=== PATIENT | male | born 1960 | race Two or more races ===

== ENCOUNTER 2025-07-17 17:26 | Emergency (ER) | payer MEDICARE, OTHER ==
[~2025-07-17] VITALS: Ht 175.3 cm; Wt 84.8 kg
--- NOTE | 2025-07-17 18:53 | DVH ---
EXAM: CT CT AB PEL WO CON-NO ORAL OR IV HISTORY: back pain flank pain COMPARISON STUDY: None TECHNIQUE: Multidetector CT of the abdomen and pelvis was performed from lung bases to pubic symphysis. Imaging was performed without IV contrast. Axial, coronal, and sagittal multiplanar reformats were obtained from the axial data set by the technologist. RADIATION DOSE: CTDI vol 14.1 mGy. DLP 787.6 mGy.cm FINDINGS: Limited evaluation of the solid organs in the absence of IV contrast. Lungs: Basilar atelectasis/scarring. Liver: Diffuse hypoattenuation of the liver suggestive of hepatic steatosis. Spleen: Unremarkable. Pancreas: Unremarkable. Gallbladder: Unremarkable. Adrenals: Unremarkable Kidneys: Nonobstructing 3 mm left renal calculus. No hydronephrosis. Pelvic Viscera: Mild prostatomegaly. Vasculature: Atherosclerotic aortoiliac calcification. Retroperitoneum: Unremarkable. Bowel: No bowel obstruction. The appendix is normal. Musculoskeletal: Broad-based disc protrusion at L4-5, suboptimally assessed. Soft tissues: Unremarkable IMPRESSION: 1. No acute abdominopelvic abnormality. 2. Incidental findings as detailed.
[2025-07-17 19:37] LABS: Hematocrit 45.5 % (41.0-53.0); Hemoglobin 15.5 g/dL (13.5-17.5); Mean Corpuscular Hemoglobin 31.5 pg (28.0-32.0); Mean Corpuscular Volume 92.4 fL (80.0-100.0); Nucleated Red Blood Cells % 0.0 %
[2025-07-17 19:49] LABS: Alanine Aminotransferase 25 U/L (7-40); Alkaline Phosphatase 78 U/L (46-116); Anion Gap 11 (5-15); BUN/Creatinine Ratio 16.7 (10.0-20.0); Blood Urea Nitrogen 15 mg/dL (9-23); Calcium 9.0 mg/dL (8.7-10.4); Carbon Dioxide 23 mmol/L (20-31); Chloride 104 mmol/L (98-107); Potassium 3.7 mmol/L (3.5-5.1); Sodium 138 mmol/L (136-145); Total Protein 7.4 g/dL (5.7-8.2)
[2025-07-17 19:50] LABS: Albumin 4.3 g/dL (3.2-4.8); Creatine Kinase IFCC 69 U/L (46-171)
[2025-07-17 19:52] LABS: Bilirubin, Total 0.2 mg/dL (0.2-1.0); Glucose 126 mg/dL (74-106)
--- NOTE | 2025-07-17 20:22 | ED.PDOC ---
Back pain HPI HPI Comments HPI: 65 year old male presents to the ED with a chief complaint of RT lumbosacral pain onset 1 week. Patient has been experiencing RT lumbosacral pain for the past week, stats he fell about 1 month ago. Pain worsens with standing or exertion. Denies numbness/tingling, fever, chills, nausea, vomiting, swelling, erythema, dizziness, dysuria, hematuria. No other symptoms or modifying factors present at this time. Initial Vitals BP: 146/105 HR: 88 RR: 18 O2 Sat: 96% Temp: 97.8 F Past Medical history: Denies Past Surgical history: eye surgery Medications: Denies Social History: Denies smoking, ETOH, and drug use. Allergies: NKDA WAGNER: Right lumbosacral focal pain. No flank pain, no CVA, worse with movement. Normal exam HPI: Poor Historian. REVIEW OF SYSTEMS: CONSTITUTIONAL: Denies acute: fever, diaphoresis, chills, generalized weakness. HEAD: Denies acute: headache, photophobia Eyes: Denies acute: Double vision, vision loss, eye pain, eye discharge. EARS: Denies acute: tinnitus, hearing loss, ear discharge, ear pain, THROAT: Denies acute: sore throat, swelling, difficulty swallowing , pain with swallowing, change in voice. NECK: Denies acute: neck pain, neck swelling, stiff neck. HEART: Denies acute : chest pain, palpitations, LUNGS: Denies acute: SOB, wheezing, cough, hemoptysis ABDOMEN: Denies acute: abdominal pain, Nausea, Vomiting, diarrhea, melena , hematemesis, hematochezia SKIN: Denies acute: rash, redness, lesions, itchiness. EXTREMITIES: Denies acute: calf pain, numbness, tingling, weakness, denies pain in extremity. Denies acute: Neuro: Denies acute: focal neurological deficit, motor or sensory focal neurological deficit, tremors, seizure like activity, confusion, dizziness, change in mental status, loss of bowel or bladder function, cauda equina like symptoms. : Denies acute: dysuria, hematuria, flank pain, increase in urinary frequency. PSYCH: Denies acute: hallucination, suicidal ideation, homicidal ideation. PHYSICAL EXAM: General: ----no----acute distress, awake and alert. Head: normocephalic, atraumatic. No raccoon's eyes, no dailey sign. Neck: supple, trachea is midline, no swelling. Throat: Normal phonation. Eyes:, no erythema, no purulent discharge, no proptosis, no icterus. Heart: regular rate, regular rhythm, no significant murmur appreciated. Lungs: no apparent respiratory distress, Able to speak in full sentences. No wheezing, no rhonchi, no crackles. No stridors Clear to auscultation bilaterally. Abdomen: non tender to palpation, non distended, soft, no guarding, no rebound, + bowel sounds. Neuro: Awake, Alert, oriented to name, self, situation, follows commands GCS=15. Speech is normal. Skin: no petechia, no purpura, no cyanosis, non-pale, not jaundice. Lower extremities: --no - Pitting edema no deformity, no focal swelling, no calf TTP. Makes eye contact. moves all four extremities. Face: no apparent facial droop. No CVA tenderness to percussion bilaterally. Ambulating in the ED independently. Evaluation of the area of complaint: Right posterior lumbosacral area focal tenderness to palpation. No erythema no swelling no deformity. ED COURSE: DISCLAIMER: This medical document was created using an electronic medical record system with voice recognition software and computerized dictation system. Although this document has been carefully reviewed, there might still be some phonetic and typographical errors. Occasional wrong-word or "sound-alike" substitutions may have occurred due to the inherent limitations of voice recognition software. These areas are purely typographical due to imperfections of the software programs and do not reflect any compromise in the patient's medical care. Please read the chart carefully and recognize, using context, where these substitutions have occurred. Chief Complaint: Flank Pain Time Seen by MD: 20:05 Reviewed Notes: Medications, Allergies Allergies: Coded Allergies: NO KNOWN ALLERGIES (Unverified , 07/17/25) Information Source: Patient, Spouse Mode of Arrival: Ambulatory Timing: Weeks Duration: Since onset Prehospital treatment: None Past Medical History PAST MEDICAL HISTORY: Denies Surgical History: Denies all surgeries Family History Family History: Reviewed,noncontributory to illness, No family hx of Cancer, No family hx of DM, No family hx of Heart emilie, No family hx of HTN, No family hx ofKidney emilie, No family hx of Liver emilie, No family hx of Lung emilie, No family hx of Stroke Social History Smoker: Non-Smoker Alcohol: Denies ETOH Use Drugs: Denies Drug Use Lives In: Home Was a procedure done? Was a procedure done?: No X-Ray, Labs, Meds, VS Vital Signs Date Time Temp Pulse Resp B/P (MAP) Pulse Ox O2 Delivery O2 Flow Rate FiO2 07/17/25 19:58 97.9 81 18 167/100 (122) 96 97.9 07/17/25 17:32 97.8 88 18 146/105 96 97.8 Lab Test 07/17/25 20:04 07/17/25 19:15 07/17/25 19:06 Range/Units Troponin I High Sensitivity 3 L 3 L </=54 ng/L Urine Color Yellow Yellow Urine Clarity Clear Clear Urine pH 6.0 5.0-9.0 Urine Specific [place] 1.023 1.001-1.035 Urine Protein Negative Negative Urine Ketones Negative Negative Urine Blood Negative Negative /uL Urine Nitrite Negative Negative Urine Bilirubin Negative Negative Urine Urobilinogen Normal Negative mg/dL Urine Leukocyte Esterase Negative Negative /uL Urine RBC 1 0 - 3 /hpf Urine Microscopic WBC < 1 0-3 /HPF Urine Squamous Epithelial Cells None seen <5 /hpf Urine Bacteria None seen None Seen /hpf Urine Glucose Normal Normal mg/dL White Blood Count 7.7 4.4-10.8 10^3/uL Red Blood Count 4.92 4.5-5.90 10^6/uL Hemoglobin 15.5 13.5-17.5 g/dL Hematocrit 45.5 41.0-53.0 % Mean Corpuscular Volume 92.4 80.0-100.0 fL Mean Corpuscular Hemoglobin 31.5 28.0-32.0 pg Mean Corpuscular Hemoglobin Concent 34.1 32.0-36.0 g/dL Red Cell Distribution Width 12.9 11.8-14.3 % Platelet Count 234 140-450 10^3/uL Mean Platelet Volume 9.0 6.9-10.8 fL Neutrophils (%) (Auto) 49.2 37.0-80.0 % Lymphocytes (%) (Auto) 37.5 10.0-50.0 % Monocytes (%) (Auto) 9.5 0.0-12.0 % Eosinophils (%) (Auto) 2.8 0.0-7.0 % Basophils (%) (Auto) 1.0 0.0-2.0 % Neutrophils # (Auto) 3.8 1.6-8.6 10 ^3/uL Lymphocytes # (Auto) 2.9 0.4-5.4 10 ^3/uL Monocytes # (Auto) 0.7 0-1.3 10 ^3/uL Eosinophils # (Auto) 0.2 0-0.8 10 ^3/uL Basophils # (Auto) 0.1 0-0.2 10 ^3/uL Nucleated Red Blood Cells 0.0 % Sodium Level 138 136-145 mmol/L Potassium Level 3.7 3.5-5.1 mmol/L Chloride Level 104 98-107 mmol/L Carbon Dioxide Level 23 20-31 mmol/L Anion Gap 11 5-15 Blood Urea Nitrogen 15 9-23 mg/dL Creatinine 0.90 0.700-1.30 mg/dL Glomerular Filtration Rate Calc 94 >90 mL/min BUN/Creatinine Ratio 16.7 10.0-20.0 Serum Glucose 126 H 74-106 mg/dL Lactic Acid Level 1.8 0.4-2.0 mmol/L Calcium Level 9.0 8.7-10.4 mg/dL Total Bilirubin 0.2 0.2-1.0 mg/dL Aspartate Amino Transferase (AST) 22 13-40 U/L Alanine Aminotransferase (ALT) 25 7-40 U/L Alkaline Phosphatase 78 46-116 U/L Creatine Kinase 69 46-171 U/L Total Protein 7.4 5.7-8.2 g/dL Albumin 4.3 3.2-4.8 g/dL [address] [address] Ph: [phone] DIAGNOSTIC IMAGING Diagnostic Imaging Report : [id number] Signed PATIENT: FLORES WAGNER ACCT: [id number] UNIT: [id number] : 1960 LOC: ER ROOM / BED: / AGE / SEX: 65 / M ADM STATUS: REG ER SERVICE [id number] ORDERING PHYSICIAN: IDALIA VINCENT DO PROCEDURE(s): ABPL - CT AB PEL WO CON-NO ORAL OR IV REASON: back pain flank pain ORDER NUMBER(s): [id number], ACCESSION NUMBER(s): [id number] EXAM: CT CT AB PEL WO CON-NO ORAL OR IV HISTORY: back pain flank pain COMPARISON STUDY: None TECHNIQUE: Multidetector CT of the abdomen and pelvis was performed from lung bases to pubic symphysis. Imaging was performed without IV contrast. Axial, coronal, and sagittal multiplanar reformats were obtained from the axial data set by the technologist. RADIATION DOSE: CTDI vol 14.1 mGy. DLP 787.6 mGy.cm FINDINGS: Limited evaluation of the solid organs in the absence of IV contrast. Lungs: Basilar atelectasis/scarring. Liver: Diffuse hypoattenuation of the liver suggestive of hepatic steatosis. Spleen: Unremarkable. Pancreas: Unremarkable. Gallbladder: Unremarkable. Adrenals: Unremarkable Kidneys: Nonobstructing 3 mm left renal calculus. No hydronephrosis. Pelvic Viscera: Mild prostatomegaly. Vasculature: Atherosclerotic aortoiliac calcification. Retroperitoneum: Unremarkable. Bowel: No bowel obstruction. The appendix is normal. Musculoskeletal: Broad-based disc protrusion at L4-5, suboptimally assessed. Soft tissues: Unremarkable IMPRESSION: 1. No acute abdominopelvic abnormality. 2. Incidental findings as detailed. ATED BY: SAMIRA DEJESUS MD DICTATED DATE/TIME: 07/17/251849 SIGNED BY: SAMIRA DEJESUS MD SIGNED DATE/TIME: 07/17/251849 CC: Time of 1ST Reevaluation: 20:35 Reevaluation 1ST: Unchanged Patient Education/Counseling: Diagnosis, Treatment Family Education/Counseling: No Family Present Departure 1 Departure Time of Disposition: 21:45 Impression: Primary Impression: Back pain, lumbosacral Disposition: 01 HOME / SELF CARE / HOMELESS Condition: Stable Additional Instructions: Additional instructions: Please read all instructions provided in this packet carefully. You MUST follow-up with your primary care/family doctor in 1 to 2 days. If you are unable to see your primary care/family doctor, please return to our emergency room for re-assessment and re-evaluation in 1 to 2 days. Return to the emergency room here in our facility or to the nearest ER [facility] if your symptoms change or worsen. CONSULTATIONS: you MUST Follow-up for consultation as soon as possible with: --orthopedic doctor in 1-2 days. Please call for appointment. You MUST call the consultants office yourself to make an appointment. You may need to arrange that through your insurance and/or your primary/family doctor. If you are unable to see the makeup sales consultant in 1 to 2 days, you must return to our emergency room (or any other ER of your choice) for re-assessment and re- evaluation. Adequate fluid hydration. Although you have been discharged from the Emergency Department, this does not mean that you have a "clean bill of health". No definitive diagnosis for your symptoms has been made today. It is possible that you are in the process of developing a serious illness. This is why you must return to the ED without fail if any new or worsening symptoms develop. Use [id number] Tylenol ibuprofen as needed for pain control. No heavy lifting. Below is a copy of your radiological report for follow up: [place] [address] Ph: [phone] DIAGNOSTIC IMAGING Diagnostic Imaging Report : [id number] Signed PATIENT: FLORES WAGNER ACCT: [id number] UNIT: [id number] : 1960 LOC: ER ROOM / BED: / AGE / SEX: 65 / M ADM STATUS: REG ER SERVICE [id number] ORDERING PHYSICIAN: IDALIA VINCENT DO PROCEDURE(s): ABPL - CT AB PEL WO CON-NO ORAL OR IV REASON: back pain flank pain ORDER NUMBER(s): [id number], ACCESSION NUMBER(s): [id number] EXAM: CT CT AB PEL WO CON-NO ORAL OR IV HISTORY: back pain flank pain COMPARISON STUDY: None TECHNIQUE: Multidetector CT of the abdomen and pelvis was performed from lung bases to pubic symphysis. Imaging was performed without IV contrast. Axial, coronal, and sagittal multiplanar reformats were obtained from the axial data set by the technologist. RADIATION DOSE: CTDI vol 14.1 mGy. DLP 787.6 mGy.cm FINDINGS: Limited evaluation of the solid organs in the absence of IV contrast. Lungs: Basilar atelectasis/scarring. Liver: Diffuse hypoattenuation of the liver suggestive of hepatic steatosis. Spleen: Unremarkable. Pancreas: Unremarkable. Gallbladder: Unremarkable. Adrenals: Unremarkable Kidneys: Nonobstructing 3 mm left renal calculus. No hydronephrosis. Pelvic Viscera: Mild prostatomegaly. Vasculature: Atherosclerotic aortoiliac calcification. Retroperitoneum: Unremarkable. Bowel: No bowel obstruction. The appendix is normal. Musculoskeletal: Broad-based disc protrusion at L4-5, suboptimally assessed. Soft tissues: Unremarkable IMPRESSION: 1. No acute abdominopelvic abnormality. 2. Incidental findings as detailed. ATED BY: SAMIRA DEJESUS MD DICTATED DATE/TIME: 07/17/251849 SIGNED BY: SAMIRA DEJESUS MD SIGNED DATE/TIME: 07/17/251849 CC: Discharged With: Self, Spouse Critical Care Note Critical Care Time?: No I personally scribed for IDALIA VINCENT DO ([email or web address]) on 07/17/25 at 20:22. Electronically submitted by Julienne Sloan ([email or web address]). IDALIA VINCENT DO Jul 17, 2025 20:22
[2025-07-17 21:02] LABS: Urine Protein, UAD Negative (Negative)
[2025-07-17 21:52] VITALS: RESP 20; TEMP 98.2; O2SAT 98
[2025-07-17] MEDS: KETOROLAC TROMETH 30 MG/ML 1ML VIAL IM ONE (21:52)
[2025-07-17] MEDS: NITROGLYCERIN 0.4 MG SL TAB SL ONE (22:03)
[2025-07-17 22:12] VITALS: BP 124/89; PULSE 89
== END 2025-07-17 22:13 | disposition home or self-care (01) ==
LOC: ER 17:26
DX: M54.50 Low back pain, unspecified (principal)
CPT/HCPCS: 36415; 74176; 80053; 81001; 82550; 83605; 84484; 85025; 96372; 99285; J1885